=== PATIENT | male | born 1945 | race Caucasian/White ===

== ENCOUNTER → 2020-10-06 | Outpatient (CLI) | payer MEDICARE, BC ==
[~2020-10-06] MED LIST: FLUOXETINE HCL60 MG PO; MELATONIN10 M2 PO; ST. JOSEPH ASPI81 M1 PO; TRAZODONE HCL50 MG PO; ZESTRIL 40 MG T40 MG PO; ZOCOR40 MG PO
== END ==
LOC: HEART 5 13:47
DX: C81.70 Other Hodgkin lymphoma, unspecified site (principal)
CPT/HCPCS: 94010

== ENCOUNTER → 2020-10-25 | Outpatient (CLI) | payer MEDICARE, BC | LOC: HEART 5 15:29 → ECHO 11-02 09:00 | DX: Z51.11 Encounter for antineoplastic chemotherapy (principal); C81.70 Other Hodgkin lymphoma, unspecified site; I08.1 Rheumatic disorders of both mitral and tricuspid valves | CPT/HCPCS: 93306 ==

== ENCOUNTER → 2020-11-10 | Day surgery (SDC) | payer MEDICARE, BC | END | disposition home or self-care (01) | LOC: OR 06:18 | PROVIDERS: Surgery | PROC: 02HV33Z Insertion of Infusion Device into Superior Vena Cava, Percutaneous Approach (ICD-10-PCS; principal; 2020-11-10 09:55) | DX: C18.9 Malignant neoplasm of colon, unspecified (principal); I10 Essential (primary) hypertension; E78.5 Hyperlipidemia, unspecified; G47.30 Sleep apnea, unspecified; M19.90 Unspecified osteoarthritis, unspecified site; Z20.822 Contact with and (suspected) exposure to COVID-19; Z87.891 Personal history of nicotine dependence; Z88.8 Allergy status to other drugs, medicaments and biological substances; Z79.899 Other long term (current) drug therapy; Z93.3 Colostomy status | CPT/HCPCS: 71045; 77001; C1769; C1788; J0690; J1100; J1642; J2001; J2370; J2405; J2704; J3010; J7030; J7040; J7120; U0002 ==

== ENCOUNTER → 2020-12-27 | Outpatient (CLI) | payer MEDICARE, BC | LOC: LAB 13:20 | DX: D64.9 Anemia, unspecified (principal) | CPT/HCPCS: 36430; 85018; 86850; 86900; 86901; 86920; 96375; J1642; J1940; P9016 ==

== ENCOUNTER → 2020-12-28 | Outpatient (CLI) | payer MEDICARE, BC ==
[~2020-12-28] VITALS: Ht 172.7 cm; Wt 83.5 kg
== END ==
LOC: OPSV 07:00
DX: C81.90 Hodgkin lymphoma, unspecified, unspecified site (principal)
CPT/HCPCS: 36430; 96374; 96375; J1642; J1940; P9016

== ENCOUNTER → 2021-01-11 | Outpatient (CLI) | payer MEDICARE, BC | LOC: HEART 5 09:00 | DX: C81.70 Other Hodgkin lymphoma, unspecified site (principal); Z01.89 Encounter for other specified special examinations | CPT/HCPCS: 94010 ==

== ENCOUNTER → 2021-03-01 | Outpatient (CLI) | payer MEDICARE, BC | LOC: HEART 5 09:11 | DX: J70.2 Acute drug-induced interstitial lung disorders (principal); C81.70 Other Hodgkin lymphoma, unspecified site; R06.02 Shortness of breath; R94.2 Abnormal results of pulmonary function studies; Z87.891 Personal history of nicotine dependence | CPT/HCPCS: 94060 ==